=== PATIENT | female | born 1970 ===

== ENCOUNTER 2017-08-19 10:31 | Emergency (ER) | payer MEDICAID ==
[2017-08-19 12:07] VITALS: BP 120/78; PULSE 82; RESP 18; TEMP 97.5; O2SAT 99
--- NOTE | 2017-08-19 12:25 | ED PDOC ---
HPI: Back Time Seen by Provider: 08/19/17 12:06 Chief Complaint (Nursing): Headache Chief Complaint (Provider): Neck pain History Per: Patient History/Exam Limitations: no limitations Onset/Duration Of Symptoms: Worse Since (08/14/17) Current Symptoms Are (Timing): Still Present Previous Symptoms: Neck Pain Additional Complaint(s): Sarahi Robertson is a 47 y/o female with a past medical history of vertigo, who presents today complaining of atraumatic neck pain, worse on the left than the right, that has been intermittent since waking up on . She notes pain improved, but worsened again since waking up Friday and has been persistent since. She notes pain worsens with movement, and radiates to the mid back. Patient saw her PMD on 07/31/17 for the same complaint and was prescribed Naproxen 375 mg and Flexeril with initial relief of symptoms, but notes they returned again this past . Shes notes she took 2 tabs of Naproxen this morning at 8am with some mild relief. She reports this episode of pain is worse than the previous, and the Naproxen is no longer relieving her pain so she came to the ER. PMD: Keri Alvarez Past Medical History Reviewed: Historical Data, Nursing Documentation, Vital Signs Vital Signs: Last Vital Signs Temp 97.5 F L 08/19/17 12:04 Pulse 82 08/19/17 12:04 Resp 18 08/19/17 12:04 BP 120/78 08/19/17 12:04 Pulse Ox 99 08/19/17 12:04 - Medical History PMH: Seizures (?. Taken off Keppra by PMD last year due to lack of seizures) Other PMH: Vertigo - Surgical History Surgical History: Cholecystectomy Other surgeries: Hysterectomy - Family History Family History: States: Unknown Family Hx - Home Medications Home Medications: Ambulatory Orders Medication Instructions Recorded Meclizine HCl [Antivert/25] 25 mg PO TID #15 tab 11/18/14 Acetaminophen [Tylenol 325mg tab] 975 mg PO TID #20 tab 08/19/17 - Allergies Allergies/Adverse Reactions: Allergies Allergy/AdvReac Type Severity Reaction Status Date / Time No Known Allergies Allergy Verified 11/18/14 13:35 Review of Systems ROS Statement: Except As Marked, All Systems Reviewed And Found Negative Constitutional: Negative for: Fever, Chills, Sweats Cardiovascular: Negative for: Chest Pain Respiratory: Negative for: Cough Gastrointestinal: Negative for: Nausea, Vomiting Musculoskeletal: Positive for: Neck Pain, Back Pain Neurological: Negative for: Weakness, Numbness Physical Exam - Reviewed Nursing Documentation Reviewed: Yes Vital Signs Reviewed: Yes - Physical Exam Appears: Positive for: Non-toxic, No Acute Distress Head Exam: Positive for: ATRAUMATIC, NORMAL INSPECTION, NORMOCEPHALIC Skin: Positive for: Normal Color Eye Exam: Positive for: Normal appearance Neck: Positive for: Supple (Tender to palpation to bilateral paracervical muscles, left > right, (+)spasm noted on left), Limited ROM (Rotation toward left is restricted due to pain. Also lateral bending toward left is restricted. Able to rotate head and lateral bend to right without difficulty. (-)midline cervical tenderness), Pain On Movement Of Neck Back: Positive for: Normal Inspection, Muscle Spasm (Left-sided trapezius, rhomboid, and parathoracic muscular spasm). Negative for: Vertebral Tenderness Neurologic/Psych: Positive for: Alert, Oriented - ECG O2 Sat by Pulse Oximetry: 99 (RA) Pulse Ox Interpretation: Normal - Progress ED Course And Treament: Tylenol and Flexeril administered. Condition: Improved Medical Decision Making Medical Decision Making: Time: 12:16 Initial Plan: --Flexeril 10 mg PO --Tylenol 975 mg PO Patient with improved pain on reevaluation. She was advised that pain appears musculoskeletal in nature, and that she can attempt prescribed medications and apply heat to the area. She was advised to return to her PMD for reevaluation should pain persist, and return to the ED for any worsening or change in symptoms. Scribe Attestation: Documented by Baylee Barron, acting as a scribe for Peg Serge PA-C Provider Scribe Attestation: All medical record entries made by the Scribe were at my direction and personally dictated by me. I have reviewed the chart and agree that the record accurately reflects my personal performance of the history, physical exam, medical decision making, and the department course for this patient. I have also personally directed, reviewed, and agree with the discharge instructions and disposition. Disposition - Clinical Impression Clinical Impression: Neck pain, Muscle strain, Muscle spasm - Patient ED Disposition Is Patient to be Admitted: No Counseled Patient/Family Regarding: Diagnosis, Need For Followup, Rx Given - Disposition Referrals: Juliano Banks MD [Staff Provider] - [facility] [Outside] Disposition: Routine/Home Disposition Time: 13:28 Condition: STABLE Additional Instructions: Take prescribed medications and apply warmth to area. F/u with PMD and return to the ED for any worsening or change in symptoms. Prescriptions: Acetaminophen [Tylenol 325mg tab] 975 mg PO TID #20 tab Instructions: Cervical Sprain (ED), Muscle Spasm (ED) Forms: [employer] (Maltese) Print Language: MEXICAN
== END 2017-08-19 13:36 | disposition home or self-care (01) ==
LOC: H.ER 10:31
DX: M54.2 Cervicalgia (principal); M62.838 Other muscle spasm